=== PATIENT | female | born 1950 | race Caucasian/White ===

== ENCOUNTER 2017-11-24 13:53 | Outpatient (CLI) | payer OTHER ==
--- NOTE | 2017-11-24 19:17 | RAD ---
LEFT FOOT THREE VIEWS: 11/24/17 No acute fracture was identified. No periosteal reaction was seen. There is dense ossification of the Achilles tendon as it inserts on the calcaneus and some ossification of the plantar fascia as it ins erts on the calcaneus as well. Minor degenerative changes are seen in the tarsometatarsal joints. IMPRESSION: No acute bony finding. POS: HOME
== END 2017-11-24 13:54 | disposition home or self-care (01) ==
LOC: BURRAD 13:53
PROVIDERS: ATTEND Family Medicine
DX: M79.672 Pain in left foot (principal)

== ENCOUNTER 2017-12-07 11:07 | Outpatient (CLI) | payer OTHER ==
--- NOTE | 2017-12-07 19:22 | RAD ---
LEFT FOOT THREE VIEWS: 12/07/2017 COMPARISON: 11/24/2017 FINDINGS: No fracture or periosteal reaction is seen. Specifically, the fourth and fifth metatarsals show no a cute changes. As before, there is dense ossification at the insertion of the Achilles tendon. IMPRESSION: No significant findings. POS: HOME
== END 2017-12-07 11:08 | disposition home or self-care (01) ==
LOC: BURRAD 11:07
PROVIDERS: ATTEND Family Medicine
DX: M79.672 Pain in left foot (principal)

== ENCOUNTER 2020-06-11 15:07 | Emergency (ER) | payer MEDICARE, OTHER ==
[2020-06-11] MEDS ORDERED: predniSONE 20 MG TAB ONE (15:48)
== END 2020-06-11 16:00 | disposition home or self-care (01) ==
LOC: BURERS 15:07
DX: L25.5 Unspecified contact dermatitis due to plants, except food (principal); E11.9 Type 2 diabetes mellitus without complications; E78.5 Hyperlipidemia, unspecified; I10 Essential (primary) hypertension
CPT/HCPCS: 99282; J7512

== ENCOUNTER 2021-05-08 09:39 | Outpatient (CLI) | payer MEDICARE, OTHER | END 2021-05-08 09:40 | disposition home or self-care (01) | LOC: BURRAD 09:39 | PROVIDERS: ATTEND Family Medicine | DX: M51.16 Intervertebral disc disorders with radiculopathy, lumbar region (principal) | CPT/HCPCS: 72100 ==